=== PATIENT | female | born 1970 | race Caucasian/White ===

== ENCOUNTER → 2022-10-13 10:03 | Outpatient (BNVA) | payer OTHER, SELFPAY | PROVIDERS: PCP Physician Assistant Medical; Visit Provider Dietitian, Registered | DX: E66.01 Morbid (severe) obesity due to excess calories (principal); R73.03 Prediabetes; Z68.38 Body mass index [BMI] 38.0-38.9, adult; Z71.3 Dietary counseling and surveillance | CPT/HCPCS: 97802 ==

== ENCOUNTER 2024-03-17 10:20 | Outpatient (AMB) | payer OTHER, SELFPAY ==
[2024-03-17 10:30] VITALS: BP 130/74; PULSE 78; O2SAT 98; BMI 38.7
--- NOTE | 2024-03-17 10:30 | MHC.OFFVIS ---
Vital Signs 03/17/24 10:30 Height 5 ft 1 in Weight 205 lb BMI 38.7 BP 130/74 Blood Pressure Location Lt brachial Position Sitting Pulse 78 Pulse Source Pulse Oximeter Pulse Oximetry (%) 98 Oxygen Delivery Method Room Air Intake Visit Reasons: Obstructive sleep apnea Allergies No Known Allergies Allergy (Verified 03/17/24 10:35) HPI HPI Obstructive sleep apnea: Details: Yaritza is a pleasant 53 year old female, former minimal smoker, quit 25+ years ago, with underlying DMII, BMI 38 and fibromyalgia. She was referred by PCP for pulmonary evaluation. She reports prior diagnosis of moderate JOSE ALBERTO in 2019 and was started on CPAP with good effect. Prior to use she had nonrestorative sleep, daytime fatigue, frequent awakenings and loud snoring. Unfortunately there were issues with the machine, deemed unusable and switched to using another family member's machine. She is aware that settings are likely not appropriate and presents to reestablish with CPAP therapy. She previously received supplies from [facility]. She denies any h/o asthma. She denies any respiratory symptoms. [facility] Social History (Updated 03/17/24 @ 10:35 by Kira Douglas [facility]) Patient Tobacco Use Status: Former Tobacco user Review of Systems Const Denies chills, Denies excessive sweating, Denies fever(s), Denies headache(s) and Denies night sweats Eyes Denies dry eyes, Denies irritation and Denies itchy eyes ENT Reports Normal hearing present, Denies headache(s), Denies nasal congestion, Denies nasal discharge, Denies post nasal drip and Denies sore throat Card Denies chest pain, Denies chest pain at rest, Denies chest pain with activity, Denies claudication, Denies leg edema, Denies dyspnea, Denies dyspnea on exertion, Denies orthopnea and Denies paroxysmal nocturnal dyspnea Resp Denies chest congestion, Denies cough, Denies excessive phlegm production, Denies pain on inspiration, Denies pain with cough, Denies dyspnea, Denies dyspnea on exertion, Denies stridor and Denies wheezing Musc Denies myalgias Neuro Reports Normal hearing present and Denies headache(s) Endo Denies excessive sweating Don/Lymph Denies lymphadenopathy Aller/Immun Denies itchy eyes, Denies seasonal rhinorrhea and Denies wheezing Physical Exam Vital Signs: Last Vital Signs Pulse 78 03/17/24 10:30 BP 130/74 03/17/24 10:30 Pulse Ox 98 03/17/24 10:30 Oxygen Delivery Method Room Air 03/17/24 10:30 BMI result Body Mass Index 38.7 Const General: cooperative, healthy appearing, comfortable, no acute distress, well developed and alert Nutritional Appearance: obese Orientation/consciousness: patient oriented x3 Limitations: no limitations HEENT Head: Yes normal to inspection, Yes normocephalic and Yes atraumatic Ears: hearing grossly normal bilaterally and external ears normal Eyes General: appearance normal, both eyes and all related structures Eyelids: Yes eyelids normal Sclerae: sclerae normal EOM: EOMs intact bilaterally Neck Neck: Yes normal visual inspection and Yes no lymphadenopathy Lymphatic: no lymphadenopathy noted Chest Chest palpation & inspection: normal inspection of the chest Resp Effort & Inspection: normal respiratory effort, able to speak in complete sentences, no audible wheezes, no cough, no stridor, not tachypneic, no tripod positioning and no use of accessory muscles Auscultation: clear to auscultation bilaterally Cardio Jugular venous distension: no JVD Rate: regular rate Rhythm: regular rhythm Skin Other: warm, dry General skin exam: no rashes or lesions noted Neuro General: patient oriented x3 Cranial nerves: Yes Normal hearing present Cognition (Neuro): normal cognition Gait exam (Neuro): Normal gait present Extrem General: Yes normal to inspection, Yes capillary refill normal, Yes no clubbing, cyanosis or edema and Yes no pedal edema Psych Appearance: grossly normal and well kempt Speech and movement: Normal speech and movement present and Clear speech present Affect: normal affect Attitude: cooperative Thought process: Normal thought process present Thought content: Normal thought content present Insight: Good insight present (Psych) Judgement: Good judgement present (Psych) Assessment & Plan Assessment & Plan (1) Non-restorative sleep: Code(s): G47.8 - Other sleep disorders Category: Medical (2) Daytime somnolence: Code(s): R40.0 - Somnolence Category: Medical (3) Obesity (BMI 30-39.9): Code(s): E66.9 - Obesity, unspecified Category: Medical Plan Yaritza presents with symptoms suggestive of JOSE ALBERTO, prior sleep study in 2019, however has not used a machine dedicated for her in quite some time. Will send for home sleep study to assess severity of JOSE ALBERTO, she recalls it being moderate previously, unsure of any nocturnal hypoxemia. Will review results when available. All questions were answered and patient is in agreement of plan. Orders: Orders RT home sleep study Today E66.9 - Obesity, unspecified, G47.8 - Other sleep disorders, R40.0 - Somnolence Coding Level of Care Code New Pt Level 3 (54760) Diagnoses Non-restorative sleep G47.8 Daytime somnolence R40.0 Obesity (BMI 30-39.9) E66.9
== END 2024-03-17 11:02 | disposition home or self-care (01) ==
PROVIDERS: PCP Physician Assistant Medical; Referring Provider Student in an Organized Health Care Education/Training Program; Visit Provider Nurse Practitioner Family
DX: G47.8 Other sleep disorders (principal); R40.0 Somnolence; E66.9 Obesity, unspecified
CPT/HCPCS: 99203

== ENCOUNTER → 2024-03-17 10:20 | Outpatient (BNVA) | payer OTHER, SELFPAY | PROVIDERS: PCP Physician Assistant Medical; Referring Provider Student in an Organized Health Care Education/Training Program; Visit Provider Nurse Practitioner Family | DX: G47.33 Obstructive sleep apnea (adult) (pediatric) (principal); G47.8 Other sleep disorders; R40.0 Somnolence; E66.9 Obesity, unspecified; Z68.38 Body mass index [BMI] 38.0-38.9, adult; Z99.89 Dependence on other enabling machines and devices; Z87.891 Personal history of nicotine dependence | CPT/HCPCS: 99202 ==

== ENCOUNTER 2024-04-07 08:32 | Outpatient (AMB) | payer OTHER, SELFPAY ==
--- NOTE | 2024-04-07 08:38 | A.OFFPC_ITS ---
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 their families to take an active role in their care by providing easy, secure access to their health information via the internet. The Patient Portal provides patients with instant access to their health information, including laboratory results, medications, allergies, demographic information, visit history, and more. In addition to managing their own care, parents and health care proxies with authorized consent will appreciate the ability to access the records of those individuals for whom they provide care. Please note: if you wish to gain access (Proxy) to another patient?s portal, you will be required to come to the Medical Records Department in person at [facility]. Both the patient giving proxy access and the proxy will need to provide photo identification and complete the appropriate authorization. The Patient Portal also allows track their appointments online. The [facility] Patient Portal also saves patients time by allowing them to submit updates to their demographic and contact information prior to their visits. Portal email notifications will also alert patients to any new activity on their portal, such as test results and new appointments. In order to initially enroll in the [facility] Patient Portal, you will need to enter some required information including the following: ? your [facility] Medical Record number ? your personal home email address ? name ? date of Please note: In order to enroll in the [facility] Patient Portal, we need to have your email address on file in your electronic medical record. The email address needs to be specific for one person (yourself) in order for your Portal enrollment to be successful. You can update your email address in person with our Registration staff when you are registering for a hospital visit. Otherwise, you will need to come to the Health Information Management (Medical Records) Department at [facility]. We are open from Wednesday ? Wednesday from 7:30 a.m. ? 4:30 p.m. You will be required to present a photo id. Once you have successfully enrolled in the Patient Portal, you will receive a one-time user id and password for the Portal, sent to your email address. This will allow you to log into the Patient Portal within 99 hrs and reset your own logon id and password, and define personal security questions. Once your permanent login and password have been set, you can log into the [facility] Patient Portal at any time via the blue button above or from the Portal Logon button on any page of the [facility] website. [facility] and [facility] encourage all of our patients to enroll in Patient Portal as it presents a valuable opportunity for patients and their families to actively participate in their care and stay healthy Welcome to [facility]. We look forward to working with you.
[2024-04-07 08:43] VITALS: BP 134/76; PULSE 82; RESP 14; O2SAT 95; BMI 37.8
== END 2024-04-07 09:36 | disposition home or self-care (01) ==
LOC: HO.HMCFM 08:33
PROVIDERS: PCP Nurse Practitioner Family; Visit Provider Nurse Practitioner Family
DX: E11.8 Type 2 diabetes mellitus with unspecified complications (principal); F33.1 Major depressive disorder, recurrent, moderate; Z68.37 Body mass index [BMI] 37.0-37.9, adult; E66.01 Morbid (severe) obesity due to excess calories; Z87.891 Personal history of nicotine dependence; M79.7 Fibromyalgia; Z78.0 Asymptomatic menopausal state; F43.10 Post-traumatic stress disorder, unspecified; K21.9 Gastro-esophageal reflux disease without esophagitis; E78.2 Mixed hyperlipidemia; M47.26 Other spondylosis with radiculopathy, lumbar region; F41.1 Generalized anxiety disorder

== ENCOUNTER → 2024-04-07 08:32 | Outpatient (BNVA) | payer OTHER, SELFPAY | PROVIDERS: PCP Nurse Practitioner Family; Visit Provider Nurse Practitioner Family | DX: Z23 Encounter for immunization (principal); E11.8 Type 2 diabetes mellitus with unspecified complications; M79.7 Fibromyalgia; F33.1 Major depressive disorder, recurrent, moderate; F43.10 Post-traumatic stress disorder, unspecified; K21.9 Gastro-esophageal reflux disease without esophagitis; E78.2 Mixed hyperlipidemia; M47.26 Other spondylosis with radiculopathy, lumbar region; E66.812 Obesity, class 2; Z68.37 Body mass index [BMI] 37.0-37.9, adult; F41.1 Generalized anxiety disorder; E55.9 Vitamin D deficiency, unspecified; Z87.891 Personal history of nicotine dependence | CPT/HCPCS: 83036; 90471; 90656; 96127; 99202 ==

== ENCOUNTER 2024-04-07 09:55 | Outpatient (REF) | payer OTHER, SELFPAY ==
[2024-04-07 11:35] LABS: Hematocrit 40.6 % (37.0-47.0); Hemoglobin 13.7 g/dl (12.0-16.0); Mean Corpuscular HGB Conc 33.7 g/dl (31.0-35.0); Mean Corpuscular Hemoglobin 29.1 pg (27.0-33.0); Mean Corpuscular Volume 86.4 fL (80.0-98.0); Mean Platelet Volume 10.8 fL (9.4-12.3); Platelet Count 302 X10*3/uL (160-400); Red Cell Distribution Width 11.9 % (11.0-16.0); White Blood Count 6.9 X10*3/uL (4.8-10.8)
[2024-04-07 12:19] LABS: TSH reflex Free T4 1.87 uIU/mL (0.32-4.0); Vitamin D 25-OH Total 27.4 ng/mL (>30)
[2024-04-07 12:24] LABS: Microalbumin Urine < 5.0 mg/L
[2024-04-07 12:29] LABS: Anion Gap 9 (12-20)
[2024-04-07 12:34] LABS: Alanine Aminotransferase 25 U/L (0-31); Albumin Level 4.1 g/dL (3.5-5.0); Alkaline Phosphatase 56 U/L (39-117); Aspartate Amino Transferase 20 U/L (5-31); Bilirubin Total 0.7 mg/dL (0.0-1.0); Blood Urea Nitrogen 7 mg/dL (9-16); Calcium 9.7 mg/dL (8.4-10.2); Carbon Dioxide 27 mmol/L (22-29); Chloride 108 mmol/L (96-108); Cholesterol 197 mg/dL (<200); Estimated Glomerular Filt Rate > 60; Glucose Random 122 mg/dL (60-115); HDL Cholesterol 45 mg/dL (>40); LDL Cholesterol Calculated 124 mg/dL (<100); Sodium 140 mmol/L (135-145); Total Protein 6.6 g/dL (6.5-8.0); Triglycerides 142 mg/dL (<150)
[2024-04-07 12:41] LABS: Folate 6.3 ng/mL (> or = 4.0); Vitamin B12 229 pg/mL (200-900)
== END 2024-04-07 09:56 | disposition home or self-care (01) ==
LOC: HO.WFDLDS 09:55
PROVIDERS: Visit Provider Nurse Practitioner Family
DX: E11.8 Type 2 diabetes mellitus with unspecified complications (principal); Z68.37 Body mass index [BMI] 37.0-37.9, adult; E66.01 Morbid (severe) obesity due to excess calories; E66.812 Obesity, class 2
CPT/HCPCS: 36415; 80053; 80061; 82043; 82306; 82570; 82607; 82746; 84443; 85027

== ENCOUNTER → 2024-05-09 08:03 | Outpatient (REF) | payer OTHER, SELFPAY | LOC: HO.SL 08:03 | PROVIDERS: PCP Nurse Practitioner Family; Visit Provider Nurse Practitioner Family | DX: G47.33 Obstructive sleep apnea (adult) (pediatric) (principal); G47.8 Other sleep disorders; R40.0 Somnolence; E66.9 Obesity, unspecified | CPT/HCPCS: 95806 ==

== ENCOUNTER → 2024-05-09 08:37 | Outpatient (BNV) | payer OTHER, SELFPAY | PROVIDERS: PCP Nurse Practitioner Family; Visit Provider Internal Medicine | DX: R40.0 Somnolence (principal); G47.8 Other sleep disorders | CPT/HCPCS: 95806 ==

== ENCOUNTER 2024-06-02 10:45 | Outpatient (AMB) | payer OTHER, SELFPAY ==
--- NOTE | 2024-06-02 10:46 | MHC.OFFVIS ---
Intake Visit Reasons: Obstructive sleep apnea/ SLEEP STUDY FU Allergies No Known Allergies Allergy (Verified 04/07/24 08:58) HPI HPI Obstructive sleep apnea/ SLEEP STUDY FU: Details: Yaritza is a pleasant 53 year old female, former minimal smoker, quit 25+ years ago, with underlying DMII, BMI 38 and fibromyalgia. She was initially sent by PCP for reevaluation of JOSE ALBERTO, prior diagnosis of moderate JOSE ALBERTO in 2019 and was started on CPAP with good effect. Unfortunately had issues with machine and has been without for quite some time. She continued to report nonrestorative sleep, daytime fatigue, frequent awakenings and loud snoring. Today she presents to review home sleep study results via telephone. [facility] Medical History (Updated 06/02/24 @ 10:53 by Cindy Peoples NP) Memory loss Neuropathy IBS (irritable bowel syndrome) Osteopenia Diabetes Anxiety and depression Concussion Surgical History (Updated 04/07/24 @ 08:56 by Kel Nettles MA) No pertinent past surgical history Family History (Updated 04/07/24 @ 09:01 by Kel Nettles MA) Mother Mental health disorder Asthma Psychiatric disorder Paternal Grandfather Substance abuse Alcoholism Maternal Grandfather Substance abuse Cardiovascular disease Alcoholism Father Asthma Hypertension Diabetes Paternal Grandmother Cardiovascular disease Sister Breast cancer Social History (Updated 04/07/24 @ 08:57 by Kel Nettles MA) Household Members: Significant Other Both parents involved: No Caregiver staying overnight: No Housing: House Are you a primary respiratory care program director to a significant other at home: No Do you presently have visiting nurse or other home services: No 75 years or older and lives alone: No Alcohol intake: current Alcohol intake frequency: a few times a month Patient Tobacco Use Status: Never used Tobacco e-Cigarette/Vaping Use: Never Used Second Hand Smoke Exposure: No Substance Use Type: Marijuana service: No Current occupational status: employed 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 Cognitive needs: Yes Hearing needs: Yes Vision needs: Yes (wear glasses) Review of Systems Const All systems reviewed & are unremarkable except as noted in HPI and below Physical Exam Const General: cooperative and no acute distress Orientation/consciousness: patient oriented x3 Resp Effort & Inspection: normal respiratory effort, able to speak in complete sentences and no audible wheezes Neuro General: patient oriented x3 Psych Mental Status: mental status grossly normal Speech and movement: Clear speech present Attitude: cooperative Thought process: Normal thought process present Thought content: Normal thought content present Insight: Good insight present (Psych) Judgement: Good judgement present (Psych) Telehealth Telehealth Telehealth Platform: Telephone Location of provider rendering services: practice address Location of patient: address on file Patient Identification confirmed using: Name, : Yes Telehealth method: voice only Patient verbally consented to treatment: Yes Patient verbally consented to billing insurance company: Yes Patient informed of any privacy concerns related to visit: Yes Minutes spent on Phone/Video with Pt.: 6 Assessment & Plan Assessment & Plan (1) Obstructive sleep apnea: Code(s): G47.33 - Obstructive sleep apnea (adult) (pediatric) Category: Medical (2) Obesity (BMI 30-39.9): Code(s): E66.9 - Obesity, unspecified Category: Medical Plan Reviewed sleep study results with patient which revealed an AHI of 8 while on right side, 18 in supine position, without nocturnal hypoxemia. Since patient is quite symptomatic, will start CPAP therapy. Will send in prescription for APAP mode and pressure settings of 6-16 cm with close monitoring for compliance and benefits. Sleep hygiene education reviewed. She is aware if there are any issues with the mask or CPAP machine, she will call the office. All questions were answered and patient is in agreement of plan. Will follow up in 8 weeks. Scribe Plan - Not visible on output: I spent 6 minutes speaking with the patient on the phone plus an additional 5 minutes reviewing and updating records for a total of 11 minutes Coding Level of Care Code Tele Est Pt Level 3 (94290) Diagnoses Obstructive sleep apnea G47.33 Obesity (BMI 30-39.9) E66.9
== END 2024-06-02 10:54 | disposition home or self-care (01) ==
LOC: HO.HPSW 10:45
PROVIDERS: PCP Nurse Practitioner Family; Visit Provider Nurse Practitioner Family
DX: G47.33 Obstructive sleep apnea (adult) (pediatric) (principal)
CPT/HCPCS: 99213

== ENCOUNTER → 2024-06-02 10:45 | Outpatient (BNVA) | payer OTHER, SELFPAY | PROVIDERS: PCP Nurse Practitioner Family; Visit Provider Nurse Practitioner Family ==

== ENCOUNTER 2024-07-25 09:52 | Outpatient (AMB) | payer OTHER, SELFPAY ==
--- NOTE | 2024-07-25 09:57 | MHC.OFFVIS ---
Vital Signs 07/25/24 09:58 Height 5 ft 1 in Weight 207 lb BMI 39.1 BP 134/70 Blood Pressure Location Rt brachial Position Sitting Pulse 77 Pulse Source Pulse Oximeter Pulse Oximetry (%) 97 Oxygen Delivery Method Room Air Intake Visit Reasons: Obstructive sleep apnea Office Machine Repair Shop Supervisor Required: No Vp Lab: Vp Lab offered & declined Accompanied by: Self / Same As Patient Allergies No Known Allergies Allergy (Verified 07/25/24 10:02) Medication List - Last Reconciled 07/25/24 by Lizz Pan LPN amitriptyline 25 mg PO BEDTIME duloxetine 60 mg PO DAILY metformin ER 500 mg PO QAM naltrexone 25 mg (1/2 x 50 mg) PO BID omeprazole 20 mg PO BID HPI HPI Obstructive sleep apnea: Details: Yaritza is a pleasant 53 year old female, former minimal smoker, quit 25+ years ago, with underlying JOSE ALBERTO, DMII, and fibromyalgia. She was initially sent by PCP for reevaluation of JOSE ALBERTO. She had previously been diagnosed in 2018 with moderate JOSE ALBERTO and using CPAP therapy with good effect, however machine had become unusable. She was sent for a repeat study and restarted CPAP therapy in June 2024 with good effect and compliance. [facility]. Today she presents to review compliance report. At this time, she denies any respiratory symptoms. [facility] Medical History (Updated 06/02/24 @ 10:53 by Cindy Peoples NP) Memory loss Neuropathy IBS (irritable bowel syndrome) Osteopenia Diabetes Anxiety and depression Concussion Surgical History (Updated 04/07/24 @ 08:56 by Kel Nettles MA) No pertinent past surgical history Family History (Updated 04/07/24 @ 09:01 by Kel Nettles MA) Mother Mental health disorder Asthma Psychiatric disorder Paternal Grandfather Substance abuse Alcoholism Maternal Grandfather Substance abuse Cardiovascular disease Alcoholism Father Asthma Hypertension Diabetes Paternal Grandmother Cardiovascular disease Sister Breast cancer Social History (Updated 04/07/24 @ 08:57 by Kel Nettles MA) Household Members: Significant Other Both parents involved: No Caregiver staying overnight: No Housing: House Are you a primary child care teacher to a significant other at home: No Do you presently have visiting nurse or other home services: No 75 years or older and lives alone: No Alcohol intake: current Alcohol intake frequency: a few times a month Patient Tobacco Use Status: Never used Tobacco e-Cigarette/Vaping Use: Never Used Second Hand Smoke Exposure: No Substance Use Type: Marijuana service: No Current occupational status: employed 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 Cognitive needs: Yes Hearing needs: Yes Vision needs: Yes (wear glasses) Review of Systems Const Denies chills, Denies excessive sweating, Denies fever(s), Denies headache(s) and Denies night sweats Eyes Denies dry eyes, Denies irritation and Denies itchy eyes ENT Reports Normal hearing present, Denies headache(s), Denies nasal congestion, Denies nasal discharge, Denies post nasal drip and Denies sore throat Card Denies chest pain, Denies chest pain at rest, Denies chest pain with activity, Denies claudication, Denies leg edema, Denies dyspnea, Denies dyspnea on exertion, Denies orthopnea and Denies paroxysmal nocturnal dyspnea Resp Denies chest congestion, Denies cough, Denies excessive phlegm production, Denies pain on inspiration, Denies pain with cough, Denies dyspnea, Denies dyspnea on exertion, Denies stridor and Denies wheezing Musc Denies myalgias Neuro Reports Normal hearing present and Denies headache(s) Endo Denies excessive sweating Don/Lymph Denies lymphadenopathy Aller/Immun Denies itchy eyes, Denies seasonal rhinorrhea and Denies wheezing Physical Exam Const General: cooperative, healthy appearing, comfortable, no acute distress, well developed and alert Nutritional Appearance: obese Orientation/consciousness: patient oriented x3 Limitations: no limitations HEENT Head: Yes normal to inspection, Yes normocephalic and Yes atraumatic Ears: hearing grossly normal bilaterally and external ears normal Eyes General: appearance normal, both eyes and all related structures Eyelids: Yes eyelids normal Sclerae: sclerae normal EOM: EOMs intact bilaterally Neck Neck: Yes normal visual inspection and Yes no lymphadenopathy Lymphatic: no lymphadenopathy noted Chest Chest palpation & inspection: normal inspection of the chest Resp Effort & Inspection: normal respiratory effort, able to speak in complete sentences, no audible wheezes, no cough, no stridor, not tachypneic, no tripod positioning and no use of accessory muscles Cardio Jugular venous distension: no JVD Rate: regular rate Rhythm: regular rhythm Skin Other: warm, dry General skin exam: no rashes or lesions noted Neuro General: patient oriented x3 Cranial nerves: Yes Normal hearing present Cognition (Neuro): normal cognition Gait exam (Neuro): Normal gait present Extrem General: Yes normal to inspection, Yes capillary refill normal, Yes no clubbing, cyanosis or edema and Yes no pedal edema Psych Appearance: grossly normal and well kempt Speech and movement: Normal speech and movement present and Clear speech present Affect: normal affect Attitude: cooperative Thought process: Normal thought process present Thought content: Normal thought content present Insight: Good insight present (Psych) Judgement: Good judgement present (Psych) Assessment & Plan Assessment & Plan (1) Obstructive sleep apnea: Code(s): G47.33 - Obstructive sleep apnea (adult) (pediatric) Category: Medical Plan Reviewed compliance report, in the last 30 days patient has been using 97% of the time, >9 hours per night, with minimal leaking and AHI average 1.0. [facility] is [facility]. She reports significant benefit using and is motivated to continue to use. All questions were answered and patient is in agreement of plan. Will follow up in 3-6 months or sooner if needed. Coding Level of Care Code Est Pt Level 3 (17170) Diagnoses Obstructive sleep apnea G47.33
[2024-07-25 09:58] VITALS: BP 134/70; PULSE 77; O2SAT 97; BMI 39.1
--- OUTSIDE RECORDS SUMMARY | 2024-07-25 10:36 | XMS_ITS | Encounter Summary ---
Author Organization [facility] Address [address] [place] [address] Care Team Providers Care Feed Crusher Operator Name Role Phone Nain Boyd DO Primary Care Provider Stella Guzman MD Primary Care Provider Un available Bhaskar Sanchez Primary Care Provider Un available Stella Lowry MD Primary Care Provider Un available Encounter Details Date Type Department Care Team Description 03/13/2022 Telephone Medicine/Pediatrics - [address] [id number] Audrey Alexander PA-C [address] [place] [address] Social History Tobacco Use Types Packs/Day Years Used Date Smoking Tobacco: Former Cigarettes Q uit: 07/04/1993 Smokeless Tobacco: Never Alcohol Use Standard Drinks/Week Comments Yes 0.8 (1 standard drink = 0.6 oz p ure alcohol) Alcohol Habits Answer Date Recorded How often do you have a drink containing alcohol ? Monthly or less 04/16/2020 How many drinks containing a lcohol do you have on a typical day when you are drinking? 1 or 2 04/16/2020 How often do you have six or more drinks on one occasion? Never 04/16/2020 Physical Activity Answer Date Recorded On average, how many days pe r week do you engage in moderate to strenuous exercise (like walking fast, running, jogging, dancing, swimming, biking, or other activities that cause a light or heavy sweat)? 1 day 04/16/2020 On average, how many minutes do you engage in exercise at this level? 30 min 04/16/2020 Stress Answer Date Recorded Do you feel stress - tense, restless, nervous, or anxious, or unable to sleep at night because your mind is troubled all the time - these days? Not at all 04/16/2020 Intimate Partner Violence Answer Date R ecorded Within the last year, have y ou been afraid of your partner or ex-partner? No 04/16/2020 Within the last year, have y ou been humiliated or emotionally abused in other ways by your partner or ex-partner? No Within the last year, have y ou been kicked, hit, slapped, or otherwise physically hurt by your partner or ex-partner? No 04/16/2020 Within the last year, have y ou been raped or forced to have any kind of sexual activity by your partner or ex-partner? No 04/16/2020 Sex Assigned at Date Recorded Not on file Job Start Date Occupation Industry Not on file Not on file Not on file COVID-19 Exposure Response Date Recorded In the last 10 days, have yo u been in contact with someone who was confirmed or suspected to have Coronavirus/COVID-19? No / Unsure 03/12/2022 9:23 AM EDT documented as of this encounter Miscellaneous Notes * Telephone Encounter - Yumiko Harrington M.A. - 03/16/2022 12:53 PM EDT Spoke to pt and pt was given message below. I also transferred her to the B[facility] to make appointment for her A1C 3 month visit. Pt stated she will be in with in a couple of weeks to do the urine to check for protein. * Telephone Encounter - Audrey Alexander PA-C - 03/13/2022 6:36 PM EDT Tried to call patient and no answer. Please try calling patient and advise taht her a1c shows she is considered diabetic. Her a1c was 6.8%. she does not need to be on medicaitaon for this however this iss something that will need to be monitored. She will need to be seen every 3 months and have labwork to check a1c every 3 months. I have ordered a urine test for her to check for protin in the urine. Can get done when she can. Remember to have an eye exam yearly and let them know you are a diabetic. Please work on cutting down on fatty foods, carbs and sweets. Rest of labs are stable and on mychart. documented in this encounter Plan of Treatment Not on file documented as of this encounter Results * MICROALBUMIN/CREATININE, URINE (06/15/2022 3:01 PM EST) CREATININE, RANDOM URINE 68 mg/dL 06/15/2022 8:17 PM EST [facility] MICROALBUMIN, RANDOM < 5.0 0.0 - 29.0 mg/L 06/15/2022 8:28 PM EST [facility] MICROALB/CRE RATIO RANDOM < 7.3 0.0 - 30.0 mg/G 06/15/2022 8:28 PM EST [facility] 06/15/2022 3:01 PM EST 06/15/2022 3:01 PM EST Narrative [facility] - 06/15/2022 8:28 PM EST Release to patient->Immediate Audrey Alexander PA-C [facility] documented in this encounter Visit Diagnoses Diagnosis Newly diagnosed diabetes (HCC)- Primary Type II or unspecified type diabetes mellitus without mention of complication, not stated as uncontrolled Newly diagnosed diabetes (HCC) Type II or unspecified type diabetes mellitus without mention of complication, not stated as uncontrolled Diabetes mellitus due to underlying condition with other oral complication, without long-term current use of insulin (HCC) documented in this encounter Care Teams Feed Crusher Operator Relationship Specialty Start Date End Date Nain Boyd DO PCP - General Internal Medicine 01/30/22 08/22/23 Stella Lowry MD PCP - General Internal Medicine 08/23/23 Bhaskar Sanchez PA PCP - General Internal Medicine 12/27/23 Stella Lowry MD PCP - General Internal Medicine 12/31/23 documented as of this encounter
--- OUTSIDE RECORDS SUMMARY | 2024-07-25 10:36 | XMS_ITS | Encounter Summary ---
Author Organization [facility] Address [address] [place] [address] Care Team Providers Care Box Order Person Name Role Phone Yumiko Bridges MD Primary Care Provider Un available Yumiko Bridges MD Primary Care Provider Un available Nain Boyd DO Primary Care Provider Unavaila Stella Hart MD Primary Care Provider Un available Bhaskar Sanchez Primary Care Provider Un available Stella Lowry MD Primary Care Provider Un available Encounter Details Date Type Department Care Team Description 04/06/2012 [facility] Report Medical Records [address] [place] [address] Isaac Cancino Social History Tobacco Use Types Packs/Day Years Used Date Smoking Tobacco: Never Smokeless Tobacco: Never Alcohol Use Standard Drinks/Week Comments Yes 0 (1 standard drink = 0.6 oz pur e alcohol) Alcohol Habits Answer Date Recorded How [...] file Not on file Not on file documented as of this encounter Plan of Treatment Not on file documented as of this encounter Visit Diagnoses Not on filedocumented in this encounter Care Teams Box Order Person Relationship Specialty Start Date End Date Yumiko Bridges MD PCP - General Internal Medicine 03/28/1205/06 Yumiko Bridges MD PCP - General Internal Medicine 02/21/17 Nain Boyd DO PCP - General Internal Medicine 01/30/22 08/22/23 Stella Lowry MD PCP - General Internal Medicine 08/23/23 Bhaskar Sanchez PA PCP - General Internal Medicine 12/27/23 Stella Lowry MD PCP - General Internal Medicine 12/31/23 documented as of this encounter
--- OUTSIDE RECORDS SUMMARY | 2024-07-25 10:36 | XMS_ITS | Encounter Summary ---
Author Organization [facility] Address [address] [place] [address] Care Team Providers Care Vision Mixer Name Role Phone Yumiko Bridges MD Primary Care Provider Un available Nain Body DO Primary Care Provider Unavaila Stella Hart MD Primary Care Provider Un available Bhaskar Sanchez Primary Care Provider Un available Stella Lowry MD Primary Care Provider Un available Encounter Details Date Type Department Care Team Description 11/27/2020 Refill Adult Medicine [address] [address] Dalia Byers MD Social History Tobacco Use Types Packs/Day Years [...] on file documented as of this encounter Miscellaneous Notes * Telephone Encounter - Yoel Rosas M.A. - 11/28/2020 1:04 PM EDT Faxed to pharmacy * Telephone Encounter - Brennan Bonilla - 11/28/2020 8:54 AM EDT Last OV 06/03/20. Upcoming Appt: NA. *Enough given to make next appt. Lab Results Component Value Date NA 142 09/09/2015 K 4.3 09/09/2015 CO2 24.0 09/09/2015 CL 103 09/09/2015 BUN 10 09/09/2015 CREAT 0.7 09/09/2015 CA 9.2 09/09/2015 GFR > 60 09/09/2015 Lab Results Component Value Date ALB 4.4 10/19/2011 SGOT 15 10/19/2011 SGPT 17 10/19/2011 TBILI 0.6 10/19/2011 ALKPHOS 58 10/19/2011 TP 6.8 10/19/2011 documented in this encounter Plan of Treatment Not on file documented as of this encounter Visit Diagnoses Not on filedocumented in this encounter Care Teams Vision Mixer Relationship Specialty Start Date End Date Yumiko [...]
--- OUTSIDE RECORDS SUMMARY | 2024-07-25 10:36 | XMS_ITS | Encounter Summary ---
Author Organization [facility] Address [address] [place] [address] Care Team Providers Care Straightening Press Operator Name Role Phone Yumiko Bridges MD Primary Care Provider Un available Yumiko Bridges MD Primary Care Provider Un available Nain Boyd DO Primary Care Provider Unavaila Stella Hart MD Primary Care Provider Un available Bhaskar Sanchez Primary Care Provider Un available Stella Lowry MD Primary Care Provider Un available Encounter Details Date Type Department Care Team Description 02/13/2016 Pt. Non Urgent Medic al Question DISK RECOATER - [address] [address] Chata Burkett MD Social History Tobacco Use Types Packs/Day [...] on file documented as of this encounter Progress Notes * Roxie Garcia R.N. - 02/13/2016 3:08 PM EDTFrom: Patti Chapa To: Chata Burkett MD Sent: 02/13/2016 2:58 PM EDT Subject: endometrial biopsy Good Afternoon. I got the test results back and wanted to make sure I understood correctly that I can cancel my appointment for the endometrial biopsy? Thank you Teetee documented in this encounter Plan of Treatment Not on file documented as of this encounter Visit Diagnoses Not on filedocumented in this encounter Care Teams Straightening Press Operator Relationship Specialty Start Date End Date Yumiko [...]
--- OUTSIDE RECORDS SUMMARY | 2024-07-25 10:36 | XMS_ITS | Encounter Summary ---
Author Organization [facility] Address [address] [place] [address] Care Team Providers Care Transmission Inspector Name Role Phone Charito Cook MD Primary Care Provider Yumiko Dickerson MD Primary Care Provider Un available Yumiko Bridges MD Primary Care Provider Un available Nain Boyd DO Primary Care Provider Unavaila Stella Hart MD Primary Care Provider Un available Bhaskar Sanchez Primary Care Provider Un available Stella Lowry MD Primary Care Provider Un available Encounter Details Date Type Department Care Team Description 05/21/2011 Any Commodity Buyer Report Medical Records [address] [place] [id number] Ferny Pedersen Social History Tobacco Use Types Packs/Day Years Used Date Smoking Tobacco: Never Assessed Alcohol Habits Answer Date Recorded How often [...] on filedocumented in this encounter Care Teams Transmission Inspector Relationship Specialty Start Date End Date Charito Cook MD PCP - General 02/20/11 03/27/12 Yumiko Bridges MD PCP - General Internal [...]
--- OUTSIDE RECORDS SUMMARY | 2024-07-25 10:36 | XMS_ITS | Encounter Summary ---
Author Organization [facility] Address [address] [place] [address] Care Team Providers Care Technician Semiconductor Development Name Role Phone Yumiko Bridges MD Primary Care Provider Un available Yumiko Bridges MD Primary Care Provider Un available Nain Boyd DO Primary Care Provider Unavaila Stella Hart MD Primary Care Provider Un available Bhaskar Sanchez Primary Care Provider Un available Stella Lowry MD Primary Care Provider Un available Encounter Details Date Type Department Care Team Description 07/04/2014 Turntable Worker Report Medical Records [address] [place] [address] Van Bass Social History Tobacco Use Types Packs/Day Years Used Date Smoking Tobacco: Former Cigarettes Q uit: 07/04/1993 Smokeless Tobacco: Never Alcohol Use Standard Drinks/Week Comments Yes 0 (1 standard drink = 0.6 oz pur e alcohol) social Alcohol Habits Answer Date Recorded How often [...] on filedocumented in this encounter Care Teams Technician Semiconductor Development Relationship Specialty Start Date End Date Yumiko [...]
--- OUTSIDE RECORDS SUMMARY | 2024-07-25 10:36 | XMS_ITS | Encounter Summary ---
Author Organization [facility] Address [address] [place] [address] Care Team Providers Care Blacking Wheel Tender Name Role Phone Yumiko Bridges MD Primary Care Provider Un available Yumiko Bridges MD Primary Care Provider Un available Nain Boyd DO Primary Care Provider Unavaila Stella Hart MD Primary Care Provider Un available Bhaskar Sanchez Primary Care Provider Un available Stella Lowry MD Primary Care Provider Un available Encounter Details Date Type Department Care Team Description 06/21/2015 Pt. Non Urgent Medic al Question Medicine/Pediatrics - [address] [phone] Yumiko Bridges MD Social History Tobacco Use Types Packs/Day [...] as of this encounter Progress Notes * Agueda Jones M.A. - 06/21/2015 1:20 PM ESTFrom: Patti Fontaine To: Yumiko Bridges MD Sent: 06/21/2015 12:37 PM EST Subject: INsurance Change I see that my insurance info is not correct, and wanted to update it It is Bc/BS ID# [id number] Group: [id number] Subscriber: Wilfred Fontaine documented in this encounter Plan of Treatment Not on file documented as of this encounter Visit Diagnoses Not on filedocumented in this encounter Care Teams Blacking Wheel Tender Relationship Specialty Start Date End Date Yumiko [...]
--- OUTSIDE RECORDS SUMMARY | 2024-07-25 10:36 | XMS_ITS | Encounter Summary ---
Author Organization [facility] Address [address] [place] [address] Care Team Providers Care Boilermaker Name Role Phone Yumiko Bridges MD Primary Care Provider Un available Nain Boyd DO Primary Care Provider Unavaila Stella Hart MD Primary Care Provider Un available Bhaskar Sanchez Primary Care Provider Un available Stella Lowry MD Primary Care Provider Un available Reason for Visit * Reason Onset Date Comments APPOINTMENT 06/04/2020 TEST RESULTS 06/04/2020 Encounter Details Date Type Department Care Team Description 06/04/2020 Telephone O[facility] - [place] [place] [address] Karen Lopez DO APPOINTMENT; TEST RESULTS Social History Tobacco Use Types Packs/Day Years [...] Exposure Response Date Recorded In the last month, have you been in contact with someone who was confirmed or suspected to have Coronavirus / COVID-19? No / Unsure 06/03/2020 3:56 PM EST documented as of this encounter Miscellaneous Notes * Telephone Encounter - Suzanne Correia M.A. - 06/21/2020 11:51 AM EST Telephone Information: . Left message for patient to call [facility] ask to speak to obgyn floor nurse. Will you let her know that her biopsies were benign and she just needs to follow up in one year for repeat pap. * Telephone Encounter - Mili Veloz M.A. - 06/04/2020 4:33 PM EST Telephone Information: Pt needs colpo, please schedule. Letter sent documented in this encounter Plan of Treatment Not on file documented as of this encounter Visit Diagnoses Not on filedocumented in this encounter Care Teams Boilermaker Relationship Specialty Start Date End Date Yumiko [...]
--- OUTSIDE RECORDS SUMMARY | 2024-07-25 10:36 | XMS_ITS | Encounter Summary ---
Author Organization [facility] Address [address] [place] [address] Care Team Providers Care Sqe Name Role Phone Yumiko Bridges MD Primary Care Provider Un available Yumiko Bridges MD Primary Care Provider Un available Nain Boyd DO Primary Care Provider Unavaila Stella Hart MD Primary Care Provider Un available Bhaskar Sanchez Primary Care Provider Un available Stella Lowry MD Primary Care Provider Un available Encounter Details Date Type Department Care Team Description 04/25/2012 Medical Malpractice Paralegal Report Medical Records [address] [place] [address] Katlin Jeff NP Social History Tobacco Use Types Packs/Day Years [...] on filedocumented in this encounter Care Teams Sqe Relationship Specialty Start Date End Date Yumiko [...]
--- OUTSIDE RECORDS SUMMARY | 2024-07-25 10:37 | XMS_ITS | Encounter Summary ---
Author Organization [facility] Address [address] [place] [address] Care Team Providers Care Professor Of Forest Planning Name Role Phone Stella Lowry MD Primary Care Provider Un available Reason for Visit * Reason Comments E-prescribe Rx Request Encounter Details Date Type Department Care Team Description 01/14/2024 Refill Medicine/Pediatrics - [address] [phone] Nain Boyd DO E-prescribe Rx Request Social History Tobacco Use Types Packs/Day Years [...] encounter Miscellaneous Notes * Telephone Encounter - Lavern Ha - 01/14/2024 4:53 PM EDT Refill on med list Last office visit : 01/03/24 Last time with PCP: s Next office visit : Nothing in last check out notes please advise on return documented in this encounter Plan of Treatment Not on file documented as of this encounter Visit Diagnoses Not on filedocumented in this encounter Care Teams Professor Of Forest Planning Relationship Specialty Start Date End Date Stella Lowry MD PCP - General Internal Medicine 12/31/23 documented as of this encounter
--- OUTSIDE RECORDS SUMMARY | 2024-07-25 10:37 | XMS_ITS | Encounter Summary ---
Author Organization [facility] Address [address] [place] [address] Care Team Providers Care Burial Vault Setter Name Role Phone Nain Boyd DO Primary Care Provider Stella Guzman MD Primary Care Provider Un available Bhaskar Sanchez Primary Care Provider Un available Stella Lowry MD Primary Care Provider Un available Encounter Details Date Type Department Care Team Description 06/16/2022 Telephone Adult Medicine - [address] [address] Nain Boyd DO Social History Tobacco Use Types Packs/Day Years [...] suspected to have Coronavirus/COVID-19? No / Unsure 06/15/2022 2:26 PM EST documented as of this encounter Miscellaneous Notes * Telephone Encounter - Rosanne Gray M.A. - 06/17/2022 1:04 PM EST Spoke to patient and message was given below. * Telephone Encounter - Rosanne Gray M.A. - 06/16/2022 2:19 PM EST ----- Message from Nain Boyd DO sent at 06/16/2022 11:57 AM EST ----- Please review documented in this encounter Plan of Treatment Not on file documented as of this encounter Visit Diagnoses Not on filedocumented in this encounter Care Teams Burial Vault Setter Relationship Specialty Start Date End Date Nain Boyd DO PCP - General Internal Medicine 01/30/22 08/22/23 Stella Lowry MD PCP - General Internal Medicine 08/23/23 Bhaskar Sanchez PA PCP - General Internal Medicine 12/27/23 Stella Lowry MD PCP - General Internal Medicine 12/31/23 documented as of this encounter
--- OUTSIDE RECORDS SUMMARY | 2024-07-25 10:37 | XMS_ITS | Encounter Summary ---
Author Organization [facility] Address [address] [place] [address] Care Team Providers Care Security Flex Utility Officer Name Role Phone Yumiko Bridges MD Primary Care Provider Un available Nain Boyd DO Primary Care Provider Unavaila Stella Hart MD Primary Care Provider Un available Bhaskar Sanchez Primary Care Provider Un available Stella Lowry MD Primary Care Provider Un available Encounter Details Date Type Department Care Team Description 01/10/2020 Pt. Non Urgent Medic al Question Adult Medicine [address] [address] Yumiko Bridges MD Social History Tobacco Use [...] as of this encounter Progress Notes * Michelle Vargas R.N. - 01/10/2020 12:53 PM EDTFrom: Patti Chapa To: Yumiko Bridges MD Sent: 01/10/2020 12:26 PM EDT Subject: COVID TESTING FOR TRAVEL Good Afternoon.... I was wondering if you offer COVID testing for travel, and if so, what is the amount I would be billed, and turnaround time? Thanks documented in this encounter Plan of Treatment Not on file documented as of this encounter Visit Diagnoses Not on filedocumented in this encounter Care Teams Security Flex Utility Officer Relationship Specialty Start Date End Date Yumiko [...]
--- OUTSIDE RECORDS SUMMARY | 2024-07-25 10:37 | XMS_ITS | Encounter Summary ---
Author Organization [facility] Address [address] [place] [address] Care Team Providers Care Balance And Hairspring Assembler Name Role Phone Yumiko Bridges MD Primary Care Provider Un available Nain Boyd DO Primary Care Provider Unavaila Stella Hart MD Primary Care Provider Un available Bhaskar Sanchez Primary Care Provider Un available Stella Lowry MD Primary Care Provider Un available Encounter Details Date Type Department Care Team Description 04/14/2017 Orders Only Medicine/Pediatrics - [address] [phone] Bryant Almanza PA-C Social History Tobacco Use Types Packs/Day Years [...] on filedocumented in this encounter Care Teams Balance And Hairspring Assembler Relationship Specialty Start Date End Date Yumiko [...]
--- OUTSIDE RECORDS SUMMARY | 2024-07-25 10:37 | XMS_ITS | Encounter Summary ---
Author Organization [facility] Address [address] [place] [address] Care Team Providers Care Animal Cruelty Investigator Name Role Phone Nain Boyd DO Primary Care Provider Stella Guzman MD Primary Care Provider Un available Bhaskar Sanchez Primary Care Provider Un available Stella Lowry MD Primary Care Provider Un available Encounter Details Date Type Department Care Team Description 12/01/2022 Refill Medicine/Pediatrics [address] [phone] Nain Boyd DO Social History Tobacco Use [...] on filedocumented in this encounter Care Teams Animal Cruelty Investigator Relationship Specialty Start Date End Date Nain Boyd DO PCP - General Internal Medicine 01/30/22 08/22/23 Stella Lowry MD PCP - General Internal Medicine 08/23/23 Bhaskar Sanchez PA PCP - General Internal Medicine 12/27/23 Stella Lowry MD PCP - General Internal Medicine 12/31/23 documented as of this encounter
--- OUTSIDE RECORDS SUMMARY | 2024-07-25 10:37 | XMS_ITS | Encounter Summary ---
Author Organization [facility] Address [address] [place] [address] Care Team Providers Care Bricklayer Paving Brick Name Role Phone Nain Boyd DO Primary Care Provider Stella Guzman MD Primary Care Provider Un available Bhaskar Sanchez Primary Care Provider Un available Stella Lowry MD Primary Care Provider Un available Encounter Details Date Type Department Care Team Description 06/16/2022 Pt. Non Urgent Medic al Question Adult Medicine - [address] [address] Nain Boyd DO Social History Tobacco Use [...] encounter Miscellaneous Notes * Telephone Encounter - Aleta Leyva.P.N. - 06/16/2022 12:47 PM EST From: Patti Chapa To: Mery Boyd Sent: 06/16/2022 12:05 PM EST Subject: Monitoring Diabetes Good Afternoon, I was wondering if I should be testing my blood sugar regularly? [place] documented in this encounter Plan of Treatment Not on file documented as of this encounter Visit Diagnoses Not on filedocumented in this encounter Care Teams Bricklayer Paving Brick Relationship Specialty Start Date End Date Nain Boyd DO PCP - General Internal Medicine 01/30/22 08/22/23 Stella Lowry MD PCP - General Internal Medicine 08/23/23 Bhaskar Sanchez PA PCP - General Internal Medicine 12/27/23 Stella Lowry MD PCP - General Internal Medicine 12/31/23 documented as of this encounter
--- OUTSIDE RECORDS SUMMARY | 2024-07-25 10:37 | XMS_ITS | Encounter Summary ---
Author Organization [facility] Address [address] [place] [address] Care Team Providers Care Multimedia Producer Name Role Phone Yumiko Bridges MD Primary Care Provider Un available Nain Boyd DO Primary Care Provider Unavaila Stella Hart MD Primary Care Provider Un available Bhaskar Sanchez Primary Care Provider Un available Stella Lowry MD Primary Care Provider Un available Reason for Visit * Reason Onset Date Comments refill request 06/14/2018 Encounter Details Date Type Department Care Team Description 06/14/2018 Refill Medicine/Pediatrics - [address] [phone] Yumiko Bridges MD refill request Social History Tobacco Use Types Packs/Day Years [...] encounter Miscellaneous Notes * Telephone Encounter - Shankia Cisneros R.N. - 06/14/2018 9:33 AM EST Last ov:04/13/18 Last refill:over 6 months to a year ago on the elavil. Has appt. On the 10th will went till then torefill. Message left to make sure she keeps her appt. * Telephone Encounter - Marsha Schwarz - 06/14/2018 9:26 AM EST Patient would like script to be: E-PRESCRIBED/FAXED TO PHARMACY WHEN WAS THE PATIENT'S LAST APPOINTMENT IN ADULT MEDICINE? [id number] WHEN WAS THE LAST TIME THE PATIENT SAW THEIR PCP? never Does patient have an upcoming appointment? Yes [id number] (THE MEDICATION REQUESTED IS ON THE MED LIST ABOVE) All of the medications requested were on the CURRENT MEDS list Did you check the Pharmacy information above?: YES Patient wants: 90 -day supply Is this a mail order prescription request ? NO If the refill is from a FAXED refill request what is the RX # listed on the fax? N/A Patients current insurance carrier is: Payor: [employer] [facility] / Plan: CC-[facility] SILVER TYPE 3 / Product Type: HMO [id number] documented in this encounter Plan of Treatment Not on file documented as of this encounter Visit Diagnoses Not on filedocumented in this encounter Care Teams Multimedia Producer Relationship Specialty Start Date End Date Yumiko [...]
--- OUTSIDE RECORDS SUMMARY | 2024-07-25 10:37 | XMS_ITS | Encounter Summary ---
Author Organization [facility] Address [address] [place] [address] Care Team Providers Care Director Educational Radio Name Role Phone Stella Lowry MD Primary Care Provider Un available Bhaskar Sanchez Primary Care Provider Un available Stella Lowry MD Primary Care Provider Un available Encounter Details Date Type Department Care Team Description 08/25/2023 Telephone Adult Medicine - [address] [address] Stella Lowry MD Social History Tobacco Use Types Packs/Day [...] on filedocumented in this encounter Care Teams Director Educational Radio Relationship Specialty Start Date End Date Stella Lowry MD PCP - General Internal Medicine 08/23/23 Bhaskar Sanchez PA PCP - General Internal Medicine 12/27/23 Stella Lowry MD PCP - General Internal Medicine 12/31/23 documented as of this encounter
--- OUTSIDE RECORDS SUMMARY | 2024-07-25 10:37 | XMS_ITS | Encounter Summary ---
Author Organization [facility] Address [address] [place] [address] Care Team Providers Care Plant Assigner Name Role Phone Stella Lowry MD Primary Care Provider Un available Bhaskar Sanchez Primary Care Provider Un available Stella Lowry MD Primary Care Provider Un available Encounter Details Date Type Department Care Team Description 08/25/2023 Telephone Adult Medicine - [address] [address] Nain Boyd, Social History Tobacco Use Types Packs/Day Years [...] Telephone Encounter - Rosanne Gray M.A. - 08/25/2023 3:50 PM EDT ----- Message from Nain Boyd DO sent at 08/25/2023 3:09 PM EDT ----- Please review documented in this encounter Plan of Treatment Not on file documented as of this encounter Visit Diagnoses Not on filedocumented in this encounter Care Teams Plant Assigner Relationship Specialty Start Date End Date Stella Lowry MD PCP - General Internal Medicine 08/23/23 Bhaskar Sanchez PA PCP - General Internal Medicine 12/27/23 Stella Lowry MD PCP - General Internal Medicine 12/31/23 documented as of this encounter
--- OUTSIDE RECORDS SUMMARY | 2024-07-25 10:37 | XMS_ITS | Encounter Summary ---
Author Organization [facility] Address [address] [place] [address] Care Team Providers Care Director Of Online Merchandising Name Role Phone Nain Boyd DO Primary Care Provider Stella Guzman MD Primary Care Provider Un available Bhaskar Sanchez Primary Care Provider Un available Stella Lowry MD Primary Care Provider Un available Encounter Details Date Type Department Care Team Description 08/02/2023 Telephone Adult Medicine - [address] [address] Nain Boyd DO Social History Tobacco Use [...] Telephone Encounter - Rosanne Gray M.A. - 08/02/2023 3:45 PM EST Spoke to patient and message was given below. * Telephone Encounter - Rosanne Gray M.A. - 08/02/2023 10:57 AM EST ----- Message from Nain Boyd DO sent at 07/30/2023 4:06 PM EST ----- Mammogram reviewed. Normal findings. Repeat mammogram after 1 year. documented in this encounter Plan of Treatment Not on file documented as of this encounter Visit Diagnoses Not on filedocumented in this encounter Care Teams Director Of Online Merchandising Relationship Specialty Start Date End Date Nain Boyd DO PCP - General Internal Medicine 01/30/22 08/22/23 Stella Lowry MD PCP - General Internal Medicine 08/23/23 Bhaskar Sanchez PA PCP - General Internal Medicine 12/27/23 Stella Lowry MD PCP - General Internal Medicine 12/31/23 documented as of this encounter
--- OUTSIDE RECORDS SUMMARY | 2024-07-25 10:37 | XMS_ITS | Encounter Summary ---
Author Organization [facility] Address [address] [place] [address] Care Team Providers Care Drywall Professional Name Role Phone Nain Boyd DO Primary Care Provider Stella Guzman MD Primary Care Provider Un available Bhaskar Sanchez Primary Care Provider Un available Stella Lowry MD Primary Care Provider Un available Reason for Visit * Reason Onset Date Comments Medication 10/06/2022 Encounter Details Date Type Department Care Team Description 10/06/2022 Refill Gastroenterology - [place] [address] [facility] [address] [place] [phone] Dino Lares MD [address] [facility] [address] [place] [address] Medication Social History Tobacco Use Types Packs/Day Years [...] suspected to have Coronavirus/COVID-19? No / Unsure 09/10/2022 8:26 AM EDT documented as of this encounter Plan of Treatment Not on file documented as of this encounter Visit Diagnoses Not on filedocumented in this encounter Care Teams Drywall Professional Relationship Specialty Start Date End Date Nain Boyd DO PCP - General Internal Medicine 01/30/22 08/22/23 Stella Lowry MD PCP - General Internal Medicine 08/23/23 Bhaskar Sanchez PA PCP - General Internal Medicine 12/27/23 Stella Lowry MD PCP - General Internal Medicine 12/31/23 documented as of this encounter
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
== END 2024-07-25 10:10 | disposition home or self-care (01) ==
PROVIDERS: PCP Nurse Practitioner Family; Visit Provider Nurse Practitioner Family
DX: G47.33 Obstructive sleep apnea (adult) (pediatric) (principal)
CPT/HCPCS: 99213

== ENCOUNTER → 2024-07-25 09:52 | Outpatient (BNVA) | payer OTHER, SELFPAY | PROVIDERS: PCP Nurse Practitioner Family; Visit Provider Nurse Practitioner Family | DX: G47.33 Obstructive sleep apnea (adult) (pediatric) (principal); Z87.891 Personal history of nicotine dependence; Z99.89 Dependence on other enabling machines and devices | CPT/HCPCS: 99212 ==

== ENCOUNTER 2024-08-11 09:33 | Outpatient (REF) | payer OTHER, SELFPAY ==
--- NOTE | ~2024-08-11 | MM_ITS ---
EXAMINATION: DXA BONE DENSITY AXIAL HISTORY: Estrogen deficiency TECHNIQUE: [employer] Dual energy absorptiometry (DEXA) of the lumbar spine, total left hip, and femoral neck was performed. COMPARISON: There are no prior studies for comparison. FINDINGS: The bone mineral density of the lumbar spine is 1.070 with a T-score of -0.9, and a Z-score of -1.3. The bone mineral density of the left total hip is 0.858 with a T-score of -1.2, and a Z-score of -1.3. The bone mineral density of the left femoral neck is 0.745 with a T-score of -2.1, and a Z-score of -1.8. FRACTURE RISK: The FRAX index suggests a risk of major osteoporotic fracture of 5.9%, and of hip fracture 0.8%. MM/XR DEXA axial skeleton IMPRESSION: Based on bone mineral density, and according to World Health Organization (WHO) criteria, the diagnosis is consistent with osteopenia. All bone density values are in grams per centimeter squared (g/cm2). Statistically, 68% of repeat scans fall within 1 SD (+/- 0.010 g/cm2 for AP spine L1-L4) and 1 SD (+/- 0.012 g/cm2 for femur total) FRAX is a trademark of the [employer]'s [employer] Met[employer] Disease, a World Health Organization (WHO) Collaborating Center. Electronically signed by: Isaac Sam MD 08/11/2024 11:14 AM [facility]
== END 2024-08-11 09:34 | disposition home or self-care (01) ==
LOC: HO.MAMMO 09:33
PROVIDERS: PCP Nurse Practitioner Family; Visit Provider Nurse Practitioner Family
DX: Z12.31 Encounter for screening mammogram for malignant neoplasm of breast (principal); Z13.820 Encounter for screening for osteoporosis; Z78.0 Asymptomatic menopausal state; M47.816 Spondylosis without myelopathy or radiculopathy, lumbar region
CPT/HCPCS: 77063; 77067; 77080

== ENCOUNTER → 2024-08-11 10:00 | Outpatient (BNV) | payer OTHER, SELFPAY | PROVIDERS: PCP Nurse Practitioner Family; Visit Provider Radiology Diagnostic Radiology | DX: Z12.31 Encounter for screening mammogram for malignant neoplasm of breast (principal) | CPT/HCPCS: 77063; 77067 ==

== ENCOUNTER 2024-09-01 08:02 | Outpatient (AMB) | payer OTHER, SELFPAY ==
--- NOTE | 2024-09-01 08:07 | A.OFFPC_ITS ---
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 with cervical cancer or precancer (high grade cervical neoplasia), you do not need cervical cancer screening. CHOLESTEROL SCREENING Cholesterol screening should begin at: Age 45 for women with no known risk factors for coronary heart disease Age 20 for women with known risk factors for coronary heart disease Repeat cholesterol screening should take place: Every 5 years for women with normal cholesterol levels More often if changes occur in lifestyle (including weight gain and diet) More often if you have diabetes, heart disease, kidney problems, or certain other conditions DIABETES SCREENING You should be screened for diabetes starting at age 35 and then repeated every 3 years if you have no risk factors for diabetes. Screening may need to start earlier and be repeated more often if you have other risk factors for diabetes, such as: You have a first degree relative with diabetes. You are overweight or have obesity. You have high blood pressure, prediabetes, or a history of heart disease. Screening for diabetes should be done if you are planning to become and you are overweight and have other risk factors such as high blood pressure. DENTAL EXAM Go to the dentist once or twice every year for an exam and cleaning. Your dentist will evaluate if you need more frequent visits. EYE EXAM Have an eye exam every 5 to 10 years before age 40. If you have vision problems, have an eye exam every 2 years or more often if recommended by your provider. You should have an eye exam that includes an examination of your retina (back of your eye) at least every year if you have diabetes. IMMUNIZATIONS Commonly needed vaccines include: Flu shot: get one every year. COVID-19 vaccine: ask your provider what is best for you. Tetanus-diphtheria and acellular pertussis (Tdap) vaccine: have one at or after age 19 as one of your tetanus-diphtheria vaccines if you did not receive it as an adolescent. Tetanus-diphtheria: have a booster (or Tdap) every 10 years. Varicella vaccine: receive 2 doses if you never had chickenpox or the varicella vaccine. Hepatitis B vaccine: receive 2, 3, or 4 doses, depending on your exact circumstances. Measles, mumps, and rubella (MMR) vaccine: receive 1 to 2 doses if you are not already immune to MMR. Your provider can tell you if you are immune. Ask your provider about the human papillomavirus (HPV) vaccine if: You have not received the HPV vaccine in the past You have not completed the full vaccine series (you should catch up on this shot) Ask your provider if you should receive other immunizations if you have certain health problems that increase your risk for some diseases such as pneumonia. INFECTIOUS DISEASE SCREENING Women who are sexually active should be screened for chlamydia and gonorrhea up until age 25. Women 25 years and older should be screened for chlamydia and gonorrhea if at high risk. Screening for hepatitis C: All adults ages 18 to 79 should get a one-time test for hepatitis C. people should be screened at every . Screening for human immunodeficiency virus (HIV): All people ages 15 to 65 should get a one-time test for HIV. Depending on your lifestyle and medical history, you may also need to be screened for infections such as syphilis and HIV, as well as other infections. PHYSICAL EXAM All adults should visit their provider from time to time, even if they are healthy. The purpose of these visits is to: Screen for disease Assess your risk of future medical problems Encourage a healthy lifestyle Update your vaccinations and other preventive care services Maintain a relationship with a provider in case of an illness Your height, weight, and BMI should be checked at every exam. During your exam, your provider may ask you about: Depression and anxiety Diet and exercise Alcohol and tobacco use Safety issues, such as using seat belts, smoke detectors, and intimate partner violence Your medicines and risk for interactions SKIN SELF-EXAM Your provider may check your skin for signs of skin cancer, especially if you're at high risk, such as if you: Have had skin cancer before Have close relatives with skin cancer Have a weakened immune system OTHER SCREENING Talk with your provider about colon cancer screening if you have a strong family history of colon cancer or polyps, or if you have had inflammatory bowel disease or polyps yourself. Routine bone density screening of women under 40 is not recommended.
[2024-09-01 08:11] VITALS: BP 128/76; PULSE 79; RESP 12; TEMP 36.3; O2SAT 97; BMI 39.3
== END 2024-09-01 08:49 | disposition home or self-care (01) ==
LOC: HO.HMCFM 08:02
PROVIDERS: PCP Nurse Practitioner Family; Visit Provider Nurse Practitioner Family
DX: Z00.01 Encounter for general adult medical examination with abnormal findings (principal); E11.8 Type 2 diabetes mellitus with unspecified complications; E66.812 Obesity, class 2; E66.01 Morbid (severe) obesity due to excess calories; Z68.37 Body mass index [BMI] 37.0-37.9, adult; F33.1 Major depressive disorder, recurrent, moderate; M47.26 Other spondylosis with radiculopathy, lumbar region; M79.7 Fibromyalgia; F41.1 Generalized anxiety disorder; K21.9 Gastro-esophageal reflux disease without esophagitis; E78.2 Mixed hyperlipidemia; G47.33 Obstructive sleep apnea (adult) (pediatric)

== ENCOUNTER → 2024-09-01 08:02 | Outpatient (BNVA) | payer OTHER, SELFPAY | PROVIDERS: PCP Nurse Practitioner Family; Visit Provider Nurse Practitioner Family | DX: Z00.01 Encounter for general adult medical examination with abnormal findings (principal); M79.7 Fibromyalgia; M81.0 Age-related osteoporosis without current pathological fracture; G40.909 Epilepsy, unspecified, not intractable, without status epilepticus; F43.10 Post-traumatic stress disorder, unspecified; K21.9 Gastro-esophageal reflux disease without esophagitis; E78.5 Hyperlipidemia, unspecified; E55.9 Vitamin D deficiency, unspecified; M85.80 Other specified disorders of bone density and structure, unspecified site; E66.812 Obesity, class 2; E66.01 Morbid (severe) obesity due to excess calories; E11.8 Type 2 diabetes mellitus with unspecified complications; M47.26 Other spondylosis with radiculopathy, lumbar region; F41.1 Generalized anxiety disorder; E78.2 Mixed hyperlipidemia; F33.1 Major depressive disorder, recurrent, moderate; G47.33 Obstructive sleep apnea (adult) (pediatric); M85.89 Other specified disorders of bone density and structure, multiple sites; L81.9 Disorder of pigmentation, unspecified; Z78.0 Asymptomatic menopausal state; Z87.891 Personal history of nicotine dependence; Z98.890 Other specified postprocedural states; Z68.37 Body mass index [BMI] 37.0-37.9, adult | CPT/HCPCS: 83036; 96127; 99212; 99396 ==

== ENCOUNTER 2025-01-01 09:39 | Outpatient (REF) | payer OTHER, SELFPAY ==
[2025-01-01 12:03] LABS: Hemoglobin A1C 148.1417 umol/L; Total Hemoglobin (HGBA1C) 3501.1343 umol/L
[2025-01-01 12:35] LABS: Folate 6.8 ng/mL (> or = 4.0); Vitamin B12 231 pg/mL (200-900)
[2025-01-01 15:35] LABS: Alanine Aminotransferase 25 U/L (0-31); Albumin Level 4.2 g/dL (3.5-5.0); Alkaline Phosphatase 60 U/L (39-117); Anion Gap 14 (12-20); Aspartate Amino Transferase 26 U/L (5-31); Blood Urea Nitrogen 8 mg/dL (9-16); Calcium 9.1 mg/dL (8.4-10.2); Carbon Dioxide 26 mmol/L (22-29); Chloride 105 mmol/L (96-108); Cholesterol 215 mg/dL (<200); Estimated Glomerular Filt Rate > 60; HDL Cholesterol 42 mg/dL (>40); Potassium 4.0 mmol/L (3.3-5.1); Sodium 141 mmol/L (135-145); Total Protein 6.5 g/dL (6.5-8.0); Triglycerides 222 mg/dL (<150)
== END 2025-01-01 09:40 | disposition home or self-care (01) ==
LOC: HO.WFDLDS 09:39
PROVIDERS: Visit Provider Nurse Practitioner Family
DX: E11.8 Type 2 diabetes mellitus with unspecified complications (principal); F41.1 Generalized anxiety disorder; K21.9 Gastro-esophageal reflux disease without esophagitis; E78.2 Mixed hyperlipidemia; E55.9 Vitamin D deficiency, unspecified
CPT/HCPCS: 36415; 80053; 80061; 82043; 82306; 82570; 82607; 82746; 83036

== ENCOUNTER 2025-01-02 08:21 | Outpatient (AMB) | payer OTHER, SELFPAY ==
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
[2025-01-02 08:27] VITALS: BP 124/70; PULSE 77; RESP 12; TEMP 36.2; O2SAT 98; BMI 38.0
== END 2025-01-02 09:00 | disposition home or self-care (01) ==
LOC: HO.HMCFM 08:22
PROVIDERS: PCP Nurse Practitioner Family; Visit Provider Nurse Practitioner Family
DX: E11.8 Type 2 diabetes mellitus with unspecified complications (principal); E78.2 Mixed hyperlipidemia; E55.9 Vitamin D deficiency, unspecified; Z68.38 Body mass index [BMI] 38.0-38.9, adult

== ENCOUNTER → 2025-01-02 08:21 | Outpatient (BNVA) | payer OTHER, SELFPAY | PROVIDERS: PCP Nurse Practitioner Family; Visit Provider Nurse Practitioner Family | DX: E11.8 Type 2 diabetes mellitus with unspecified complications (principal); E78.2 Mixed hyperlipidemia; E55.9 Vitamin D deficiency, unspecified; E66.9 Obesity, unspecified; Z68.38 Body mass index [BMI] 38.0-38.9, adult; M85.80 Other specified disorders of bone density and structure, unspecified site; K21.9 Gastro-esophageal reflux disease without esophagitis; Z79.84 Long term (current) use of oral hypoglycemic drugs; Z79.899 Other long term (current) drug therapy; Z13.31 Encounter for screening for depression; Z13.39 Encounter for screening examination for other mental health and behavioral disorders | CPT/HCPCS: 96127; 99212 ==

== ENCOUNTER 2025-01-24 08:21 | Outpatient (AMB) | payer OTHER, SELFPAY ==
[2025-01-24 08:32] VITALS: BP 132/86; PULSE 81; O2SAT 99; BMI 37.9
--- NOTE | 2025-01-24 08:32 | MHC.OFFVIS ---
Vital Signs 01/24/25 08:32 Height 5 ft 1 in Weight 200 lb 8 oz BMI 37.9 BP 132/86 Blood Pressure Location Rt brachial Position Sitting Pulse 81 Pulse Source Pulse Oximeter Pulse Oximetry (%) 99 Oxygen Delivery Method Room Air Intake Visit Reasons: Obstructive sleep apnea Allergies No Known Allergies Allergy (Verified 01/24/25 08:38) HPI HPI Obstructive sleep apnea: Details: Yaritza is a pleasant 54 year old female, former minimal smoker, quit 25+ years ago, with underlying mild JOSE ALBERTO, DMII, and fibromyalgia. She had previously been diagnosed in 2018 with moderate JOSE ALBERTO and using CPAP therapy with good effect, however machine had become unusable. Repeat home sleep study ordered revealing mild JOSE ALBERTO with AHI 8, no nocturnal hypoxemia and restarted CPAP therapy in June 2024 with good effect and compliance. [facility]. She reports improvements in overall sleep quality and daytime fatigue. She did purchase a portable CPAP which she has been using on vacation. At this time, she denies any respiratory symptoms. Today she presents to review compliance report. [facility] Medical History (Updated 01/02/25 @ 09:04 by IHSAN Belle-JESUS) Memory loss Neuropathy IBS (irritable bowel syndrome) Osteopenia Diabetes Anxiety and depression Concussion Surgical History (Updated 09/01/24 @ 08:26 by IHSAN Belle-JESUS) History of colonoscopy (~2022) No pertinent past surgical history Family History Mother Mental health disorder Asthma Psychiatric disorder Paternal Grandfather Substance abuse Alcoholism Maternal Grandfather Substance abuse Cardiovascular disease Alcoholism Father Asthma Hypertension Diabetes Paternal Grandmother Cardiovascular disease Sister Breast cancer Social History (Updated 01/24/25 @ 08:38 by Kira Douglas CMA) Household Members: Significant Other Both parents involved: No Caregiver staying overnight: No Housing: House Are you a primary animal care service worker to a significant other at home: No Do you presently have visiting nurse or other home services: No 75 years or older and lives alone: No Alcohol intake: current Alcohol intake frequency: a few times a month Patient Tobacco Use Status: Former Tobacco user e-Cigarette/Vaping Use: Never Used Second Hand Smoke Exposure: No Substance Use Type: Marijuana service: No Current occupational status: employed 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 Cognitive needs: Yes Hearing needs: Yes Vision needs: Yes (wear glasses) Review of Systems Const Denies chills, Denies excessive sweating, Denies fever(s), Denies headache(s) and Denies night sweats Eyes Denies dry eyes, Denies irritation and Denies itchy eyes ENT Reports Normal hearing present, Denies headache(s), Denies nasal congestion, Denies nasal discharge, Denies post nasal drip and Denies sore throat Card Denies chest pain, Denies chest pain at rest, Denies chest pain with activity, Denies claudication, Denies leg edema, Denies dyspnea, Denies dyspnea on exertion, Denies orthopnea and Denies paroxysmal nocturnal dyspnea Resp Denies chest congestion, Denies cough, Denies excessive phlegm production, Denies pain on inspiration, Denies pain with cough, Denies dyspnea, Denies dyspnea on exertion, Denies stridor and Denies wheezing Musc Denies myalgias Neuro Reports Normal hearing present and Denies headache(s) Endo Denies excessive sweating Don/Lymph Denies lymphadenopathy Aller/Immun Denies itchy eyes, Denies seasonal rhinorrhea and Denies wheezing Physical Exam Vital Signs: Last Vital Signs Pulse 81 01/24/25 08:32 BP 132/86 01/24/25 08:32 Pulse Ox 99 01/24/25 08:32 Oxygen Delivery Method Room Air 01/24/25 08:32 BMI result Body Mass Index 37.9 Const General: cooperative, healthy appearing, comfortable, no acute distress, well developed and alert Nutritional Appearance: obese Orientation/consciousness: patient oriented x3 Limitations: no limitations HEENT Head: Yes normal to inspection, Yes normocephalic and Yes atraumatic Ears: hearing grossly normal bilaterally and external ears normal Eyes General: appearance normal, both eyes and all related structures Eyelids: Yes eyelids normal Sclerae: sclerae normal EOM: EOMs intact bilaterally Neck Neck: Yes normal visual inspection and Yes no lymphadenopathy Lymphatic: no lymphadenopathy noted Chest Chest palpation & inspection: normal inspection of the chest Resp Effort & Inspection: normal respiratory effort, able to speak in complete sentences, no audible wheezes, no cough, no stridor, not tachypneic, no tripod positioning and no use of accessory muscles Auscultation: clear to auscultation bilaterally Cardio Jugular venous distension: no JVD Rate: regular rate Rhythm: regular rhythm Skin Other: warm, dry General skin exam: no rashes or lesions noted Neuro General: patient oriented x3 Cranial nerves: Yes Normal hearing present Cognition (Neuro): normal cognition Gait exam (Neuro): Normal gait present Extrem General: Yes normal to inspection, Yes capillary refill normal, Yes no clubbing, cyanosis or edema and Yes no pedal edema Psych Appearance: grossly normal and well kempt Speech and movement: Normal speech and movement present and Clear speech present Affect: normal affect Attitude: cooperative Thought process: Normal thought process present Thought content: Normal thought content present Insight: Good insight present (Psych) Judgement: Good judgement present (Psych) Assessment & Plan Assessment & Plan (1) Obstructive sleep apnea: Code(s): G47.33 - Obstructive sleep apnea (adult) (pediatric) Category: Medical Plan Reviewed compliance report, for the last 30 days patient has been using 93% of the time, >8 hours per night, with moderate leaking and AHI average 1.1. [facility]. We did discuss the need to keep up with supplies she notes not replacing supplies on a timely basis likely contributing to leaking which she was agreeable to. Overall patient reports significant benefit with using CPAP therapy and is motivated to continue to use. All questions were answered and patient is in agreement of plan. Will follow up in 3-6 months or sooner if needed. Coding Level of Care Code Est Pt Level 4 (87129) Diagnoses Obstructive sleep apnea G47.33
== END 2025-01-24 08:52 | disposition home or self-care (01) ==
LOC: HO.HPSW 08:21
PROVIDERS: PCP Nurse Practitioner Family; Visit Provider Nurse Practitioner Family
DX: G47.33 Obstructive sleep apnea (adult) (pediatric) (principal)
CPT/HCPCS: 99214

== ENCOUNTER → 2025-01-24 08:21 | Outpatient (BNVA) | payer OTHER, SELFPAY | PROVIDERS: PCP Nurse Practitioner Family; Visit Provider Nurse Practitioner Family | DX: G47.33 Obstructive sleep apnea (adult) (pediatric) (principal); E11.9 Type 2 diabetes mellitus without complications; M79.7 Fibromyalgia; Z99.89 Dependence on other enabling machines and devices | CPT/HCPCS: 99212 ==